=== PATIENT | female | born 1995 | race Caucasian/White ===

== ENCOUNTER 2019-05-15 22:32 | Emergency (ER) | payer OTHER ==
[~2019-05-15] VITALS: Ht 167.6 cm; Wt 127.0 kg
[2019-05-15] MEDS ORDERED: IBUPROFEN 800800 M1 PO ×2 (22:43→23:11)
[2019-05-15] MEDS ORDERED: FLONASE 0.05%50 MCG NASAL (23:11)
[2019-05-15] MEDS ORDERED: ZYRTEC10 M5 PO (23:11)
[2019-05-15] MEDS ORDERED: BUTALB-APAP-CA1 EACH PO (23:11)
[2019-05-16 00:13] VITALS: BP 138/87
== END 2019-05-16 01:06 | disposition home or self-care (01) ==
LOC: M.ERS 22:32
DX: G43.009 Migraine without aura, not intractable, without status migrainosus (principal); J30.9 Allergic rhinitis, unspecified; R11.2 Nausea with vomiting, unspecified; J45.909 Unspecified asthma, uncomplicated; Z88.1 Allergy status to other antibiotic agents; Z88.8 Allergy status to other drugs, medicaments and biological substances

== ENCOUNTER 2019-05-24 02:03 | Emergency (ER) | payer OTHER ==
[~2019-05-24] VITALS: Ht 167.6 cm; Wt 127.0 kg
[~2019-05-24 02:03] MED LIST: BUTALB-APAP-CA1 EACH PO; FLONASE 0.05%50 MCG NASAL; IBUPROFEN 800800 M1 PO; ZYRTEC10 M5 PO
[2019-05-24 02:49] LABS: URINE BILIRUBIN NEGATIVE (Negative); URINE BLOOD 3+ (Negative); URINE CLARITY CLOUDY; URINE COLOR RED; URINE GLUCOSE-RANDOM NEGATIVE (Negative); URINE KETONES NEGATIVE (Negative); URINE LEUKOCYTES-REFLEX NEGATIVE (Negative); URINE NITRITE-REFLEX NEGATIVE (Negative); URINE PROTEIN 2+ (Negative); URINE SPECIFIC GRAVITY 1.025 (1.005-1.030); URINE UROBILINOGEN 0.2 E.U./dl (0.2-1.0)
[2019-05-24 03:08] LABS: CASTS None Seen /LPF (None Seen); SQUAMOUS 0-3 Few /LPF (0-3); URINE RBC >20 Many /HPF (0-2); URINE WBC-REFLEX None Seen /HPF (0-5)
[2019-05-24 03:09] LABS: BACTERIA-REFLEX 1-9 Few /HPF (None Seen); CRYSTALS None Seen /LPF (None Seen)
[2019-05-24 03:15] LABS: ABSOLUTE EOSINOPHILS 0.1 thou/uL (0.0-0.7); ABSOLUTE LYMPHOCYTES 2.3 thou/uL (0.8-5.3); ABSOLUTE MONOCYTES 0.5 thou/uL (0.0-1.2); ABSOLUTE NEUTROPHILS 3.7 thou/uL (1.6-8.1); BASOPHILS 0.5 %; EOSINOPHILS 1.1 %; HEMATOCRIT 37.4 % (37.0-47.0); HEMOGLOBIN 12.8 gm/dL (12.0-15.0); LYMPHOCYTES 34.1 %; MCH 30.8 pg (26.0-34.0); MCHC 34.3 g/dL (28.0-37.0); MCV 89.8 fL (80.0-100.0); MONOCYTES 7.7 %; MPV 8.7 fl. (7.2-11.1); NUCLEATED RBCS 0 /100WBC; PLATELET COUNT* 244 thou/uL (150-400); POLYS 56.6 %; RBC 4.16 mil/uL (4.20-5.00); RDW-CV 13.9 % (10.5-14.5); WBC 6.6 thou/uL (4.0-11.0)
[2019-05-24 03:18] LABS: CALCIUM 8.4 mg/dL (8.5-10.1); CREATININE 0.6 mg/dL (0.6-1.3); POTASSIUM 3.8 mmol/L (3.5-5.1)
[2019-05-24] MEDS ORDERED: NORETHINDRONE AC5 M1 PO (03:52)
[2019-05-24 04:10] VITALS: BP 136/77
== END 2019-05-24 04:11 | disposition home or self-care (01) ==
LOC: M.ERS 02:03
PROVIDERS: Emergency Medicine
DX: N93.9 Abnormal uterine and vaginal bleeding, unspecified (principal); J45.909 Unspecified asthma, uncomplicated; F41.9 Anxiety disorder, unspecified; G43.909 Migraine, unspecified, not intractable, without status migrainosus; E66.9 Obesity, unspecified; Z88.8 Allergy status to other drugs, medicaments and biological substances; Z88.1 Allergy status to other antibiotic agents; Z68.42 Body mass index [BMI] 45.0-49.9, adult

== ENCOUNTER 2020-05-22 22:41 | Emergency (ER) | payer OTHER ==
[~2020-05-22] VITALS: Ht 167.6 cm; Wt 127.0 kg
[~2020-05-22 22:41] MED LIST changes: +NORETHINDRONE AC5 M1 PO
[2020-05-22] MEDS ORDERED: PROAIR HFA8.5 GM INH (22:54)
[2020-05-22] MEDS ORDERED: NAPROSYN500 MG PO (22:58)
[2020-05-22 23:14] LABS: INFLUENZA A ANTIGEN Negative (Negative); INFLUENZA B ANTIGEN Negative (Negative)
[2020-05-22 23:21] LABS: URINE BILIRUBIN NEGATIVE (Negative); URINE BLOOD 2+ (Negative); URINE CLARITY CLOUDY; URINE COLOR YELLOW; URINE GLUCOSE-RANDOM NEGATIVE (Negative); URINE KETONES NEGATIVE (Negative); URINE PROTEIN 1+ (Negative); URINE SPECIFIC GRAVITY 1.015 (1.005-1.030)
[2020-05-22 23:24] LABS: URINE LEUKOCYTES-REFLEX 2+ (Negative); URINE NITRITE-REFLEX POSITIVE (Negative)
[2020-05-22 23:32] LABS: BACTERIA-REFLEX >30 Many /HPF (None Seen); CASTS None Seen /LPF (None Seen); MUCUS 4-6 Moderate strn/LPF (None Seen); SQUAMOUS 0-3 Few /LPF (0-3); URINE WBC-REFLEX >25 Many /HPF (0-5); WBC CLUMPS Moderate (None Seen)
[2020-05-22 23:33] LABS: CRYSTALS None Seen /LPF (None Seen)
[2020-05-23 00:07] LABS: HEMATOCRIT 35.6 % (37.0-47.0); HEMOGLOBIN 12.2 gm/dL (12.0-15.0); MCH 27.4 pg (26.0-34.0); MCHC 34.2 g/dL (28.0-37.0); MCV 80.1 fL (80.0-100.0); MPV 8.7 fl. (7.2-11.1); NUCLEATED RBCS 0 /100WBC; PLATELET COUNT* 235 thou/uL (150-400); RBC 4.44 mil/uL (4.20-5.00); RDW-CV 15.8 % (10.5-14.5)
[2020-05-23] MEDS ORDERED: ZOFRAN ODT4 MG PO (00:09)
[2020-05-23] MEDS ORDERED: DOXYCYCLINE 10100 MG PO (00:09)
[2020-05-23 00:12] LABS: CALCIUM 8.4 mg/dL (8.5-10.1); POTASSIUM 3.2 mmol/L (3.5-5.1)
[2020-05-23 00:17] LABS: ALBUMIN 3.4 g/dL (3.4-5.0); TOTAL BILIRUBIN 0.4 mg/dL (<0.1-1.0); TOTAL PROTEIN 7.5 g/dL (6.4-8.2)
[2020-05-23 02:53] VITALS: BP 124/66
[2020-05-23 04:05] LABS: ABSOLUTE EOSINOPHILS 0.1 thou/uL (0.0-0.7); ABSOLUTE LYMPHOCYTES 0.7 thou/uL (0.8-5.3); ABSOLUTE MONOCYTES 0.3 thou/uL (0.0-1.2); ABSOLUTE NEUTROPHILS 8.9 thou/uL (1.6-8.1); ANISOCYTOSIS Occasional; PLATELET ESTIMATE ADEQUATE; TOXIC GRANULATION 1+
[2020-05-23 04:06] LABS: LARGE PLATELETS FEW
== END 2020-05-23 02:55 | disposition home or self-care (01) ==
LOC: M.ERS 22:41
PROVIDERS: Emergency Medicine
DX: N39.0 Urinary tract infection, site not specified (principal); Z20.828 Contact with and (suspected) exposure to other viral communicable diseases; J45.909 Unspecified asthma, uncomplicated; G43.909 Migraine, unspecified, not intractable, without status migrainosus; E66.9 Obesity, unspecified; Z88.1 Allergy status to other antibiotic agents; Z88.8 Allergy status to other drugs, medicaments and biological substances

== ENCOUNTER 2021-05-03 11:42 | Emergency (ER) | payer OTHER ==
[~2021-05-03] VITALS: Ht 167.6 cm; Wt 127.0 kg
[~2021-05-03 11:42] MED LIST changes: +DOXYCYCLINE 10100 MG PO; +NAPROSYN500 MG PO; +PROAIR HFA8.5 GM INH; +ZOFRAN ODT4 MG PO
[2021-05-03 14:08] VITALS: BP 115/54
== END 2021-05-03 14:09 | disposition left against medical advice (07) ==
LOC: M.ERS 11:42
DX: R19.7 Diarrhea, unspecified (principal); Z53.21 Procedure and treatment not carried out due to patient leaving prior to being seen by health care provider